=== PATIENT | female | born 1960 | race Caucasian/White ===

== ENCOUNTER 2021-05-04 09:23 | Outpatient (CLI) | payer MEDICARE, MEDICAID, SELFPAY ==
--- NOTE | 2021-05-04 09:32 | CT_ITS ---
WS: [id number] LDCT LUNG CANCER SCREENING HISTORY: nicotine dependence TECHNIQUE: Axial imaging performed from the apices to 1 cm below the costophrenic angles. Coronal and sagittal reformats are submitted with axial MIP series. All CT scans at [facility] use at least one of these dose optimization techniques: automated exposure control; mA and/or kV adjustment per patient size (includes targeted exams where dose is matched to clinical indication); or iterativ e reconstruction. DLP: 54.58 mGy.cm DIvol: 1.58 mGy COMPARISON: None available. Diagnostic quality: Satisfactory Lung Nodules: No focal nodules. Increased soft tissue in the RIGHT lower lobe segmental subsegmental bronchial tree. There is bronchial wall thickening. Lungs: No pneumonia. Heart: Normal size. No pericardial effusion. Other findings: Mild atherosclerosis aorta. Small hiatal hernia. CT/CT lung screening 32778 IMPRESSION: LUNG-RADS: 4A-Probably Suspicious FOLLOW UP: Chest CT with or without contrast OTHER FINDINGS (S MODIFIER): None. Recommend chest CT follow-up with IV contrast in 3 months. The bronchial wall t hickening and possible endobronchial lesion in the RIGHT lower needs to be furt her evaluated. Endoscopy may be necessary.
[2021-05-04 10:03] VITALS: BMI 31.1
--- NOTE | 2021-05-04 11:12 | PC.NURSE ---
initially started lexiscan due to order put in computer. after office note was read, there was mention of results of stress echo to be discussed at next visit. nurse called dr webster office to get order clarified and it was decided he wanted a stress echo. his office is to call pt with new information.
== END 2021-05-04 09:24 | disposition home or self-care (01) ==
LOC: CDL 09:30
PROVIDERS: PCP Family Medicine; Visit Provider Internal Medicine Pulmonary Disease
DX: Z12.2 Encounter for screening for malignant neoplasm of respiratory organs (principal); F17.210 Nicotine dependence, cigarettes, uncomplicated
CPT/HCPCS: 71271